=== PATIENT | female | born 1995 | race American Indian/Alaskan Native ===

== ENCOUNTER 2021-04-25 03:53 | Emergency (ER) | payer SELFPAY ==
[2021-04-25 04:03] VITALS: BP 127/92
[2021-04-25] MEDS ORDERED: methylPREDNISolone Sod Succinate 125 MG/2 ML INJ IV ONE (04:12)
[2021-04-25] MEDS ORDERED: FAMOTIDINE 20 MG/2 ML INJ IV ONE (04:12)
[2021-04-25] MEDS ORDERED: CETIRIZINE 10 MG TAB PO ONE (04:13)
--- NOTE | 2021-04-25 04:23 | Emergency Department Report ---
ED Allergic Reaction HPI - General Chief complaint: Allergic Reaction Stated complaint: ALLERGIC REACTION HAIR PRODUCTS Time Seen by Provider: 04/25/21 04:12 Source: patient Mode of arrival: Ambulatory Limitations: No Limitations - History of Present Illness Initial Comments: Chief complaint: Allergic reaction to hair dye HPI: This is a healthy 26-year-old female without chronic medical conditions but history of previous allergic reaction to hair dye who presents with similar reaction to hair dye. Patient used Dr. Mckeon hair coloring. 1 hour after application, she awakened with diffuse itching of the upper torso and face. She has redness to her face. She has sensation of her throat closing. MD Complaint: allergic reaction, facial swelling, other (Diffuse itching upper torso) -: Gradual, hour(s) (1 hour after applying hair dye to scalp and hair) Symptoms: facial swelling, difficulty swallowing Severity: mild Treatment Prior to Arrival: other (Aaron yu) Previous Allergy History: other (Patient had previous allergic reaction to hair dye) - Related Data Previous Rx's Medication Instructions Recorded Last Taken Type Cetirizine HCl 10 mg PO DAILY 3 Days #3 tablet 04/25/21 Unknown Rx EPINEPHrine [Epipen] 0.3 mg IJ ONCE PRN #1 auto.injct 04/25/21 Unknown Rx Famotidine [Pepcid] 20 mg PO BID 3 Days #6 tablet 04/25/21 Unknown Rx predniSONE [Deltasone] 3 tab PO QDAY 3 Days #9 tab 04/25/21 Unknown Rx Allergies Allergy/AdvReac Type Severity Reaction Status Date / Time hair dye Allergy Hives Uncoded 04/25/21 04:12 ED Review of Systems ROS: Stated complaint: ALLERGIC REACTION HAIR PRODUCTS Other details as noted in HPI Comment: All other systems reviewed and negative Constitutional: denies: chills, fever, malaise ENT: other (Throat closing sensation) Respiratory: denies: cough, shortness of breath, wheezing Cardiovascular: denies: chest pain Gastrointestinal: denies: abdominal pain, nausea, vomiting Skin: rash, lesions ED Past Medical Hx - Past Medical History Previous Medical History?: No - Surgical History Past Surgical History?: Yes Additional Surgical History: Knee surgery - Social History Smoking Status: Never Smoker Substance Use Type: Alcohol - Medications Home Medications: Home Medications Medication Instructions Recorded Confirmed Last Taken Type Cetirizine HCl 10 mg PO DAILY 3 Days #3 tablet 04/25/21 Unknown Rx EPINEPHrine [Epipen] 0.3 mg IJ ONCE PRN #1 auto.injct 04/25/21 Unknown Rx Famotidine [Pepcid] 20 mg PO BID 3 Days #6 tablet 04/25/21 Unknown Rx predniSONE [Deltasone] 3 tab PO QDAY 3 Days #9 tab 04/25/21 Unknown Rx ED Physical Exam - General Limitations: No Limitations General appearance: alert, in no apparent distress, other (Speaking full word sentences, no stridor, normal voice, no drooling, no acute distress) - Head Head exam: Present: atraumatic, normocephalic, other (Patchy rash faint erythema entire face) - Eye Eye exam: Present: normal appearance - ENT ENT exam: Present: normal orophraynx, mucous membranes moist, other (Normal lip tongue size, no swelling of the oropharynx) - Neck Neck exam: Present: normal inspection - Respiratory Respiratory exam: Present: normal lung sounds bilaterally. Absent: respiratory distress, wheezes, rhonchi, chest wall tenderness, accessory muscle use, decreased breath sounds, prolonged expiratory - Cardiovascular Cardiovascular Exam: Present: regular rate, normal rhythm, normal heart sounds. Absent: systolic murmur, diastolic murmur, rubs, gallop - GI/Abdominal GI/Abdominal exam: Present: soft, normal bowel sounds. Absent: distended, tenderness, guarding, rebound - Extremities Exam Extremities exam: Present: normal inspection - Back Exam Back exam: Present: normal inspection - Neurological Exam Neurological exam: Present: alert, oriented X3 - Psychiatric Psychiatric exam: Present: normal affect, normal mood - Skin Skin exam: Present: rash, other (Patchy rash faint erythema to entire face no urticaria involving the upper lower torso) ED Course Vital Signs 04/25/21 03:59 Temperature 98.4 F Pulse Rate 107 H Respiratory 18 Rate Blood Pressure 127/92 O2 Sat by Pulse 96 Oximetry - Reevaluation(s) Reevaluation #1: 04/25/21 04:52 Nurse informed me that patient vomited shortly after taking p.o. cetirizine. I immediately came to the bedside. I was concerned for hypotension and anaphylactic shock. Patient had strong bounding 2+ radial pulse. Normal blood pressure. Patient's facial rash jarrett improved after receiving famotidine in methylprednisone. ED Medical Decision Making - Medical Decision Making Acute allergic reaction: No evidence of anaphylaxis or severe angioedema patient given IV Solu-Medrol, IV famotidine and p.o. cetirizine. Patient prescribed EpiPen, cetirizine, prednisone, famotidine. Referred to l tacker. Critical care attestation.: If time is entered above; I have spent that time in minutes in the direct care of this critically ill patient, excluding procedure time. ED Disposition Clinical Impression: Acute allergic reaction Disposition: HOME / SELF CARE / HOMELESS Is pt being admited?: No Does the pt Need Aspirin: No Condition: Stable Instructions: How to Use an Auto-Injector Pen, Anaphylactic Reaction, Adult, [id number] Prescriptions: Cetirizine HCl 10 mg PO DAILY 3 Days #3 tablet predniSONE [Deltasone] 3 tab PO QDAY 3 Days #9 tab EPINEPHrine [Epipen] 0.3 mg IJ ONCE PRN #1 auto.injct PRN Reason: Anaphylaxis Famotidine [Pepcid] 20 mg PO BID 3 Days #6 tablet Referrals: SURINDER AGUIAR MD [Referring] - 3-5 Days MANUELA NOVA MD [Referring] - 3-5 Days MYKEL OSUNA MD [Referring] - 3-5 Days Forms: Work/School Release Form(ED)
[2021-04-25] MEDS ORDERED: ONDANSETRON 4 MG/2 ML INJ ONE (04:46)
[2021-04-25] MEDS ORDERED: ONDANSETRON 4 MG/2 ML INJ IV ONE (04:51)
[2021-04-25] MEDS ORDERED: diphenhydrAMINE 50 MG/ML VIAL IV ONE (04:51)
== END 2021-04-25 05:40 | disposition home or self-care (01) ==
LOC: ED 03:53
DX: T78.40XA Allergy, unspecified, initial encounter (principal); Z98.890 Other specified postprocedural states; Z79.899 Other long term (current) drug therapy; Z91.048 Other nonmedicinal substance allergy status; X58.XXXA Exposure to other specified factors, initial encounter
CPT/HCPCS: 96374; 96375; 99282; J1200; J2405; J2930